=== PATIENT | female | born 1945 | race Caucasian/White ===

== ENCOUNTER 2017-02-23 08:30 | Emergency (ER) | payer MEDICARE ==
[2013-08-14 09:57] VITALS: BMI 36.8
[~2017-02-23 08:30] MED LIST: ALDACTONE25 MG PO; ALLEGRA180 MG PO; AUGMENTIN 500-11 TAB PO; BACTROBAN 22 GM22 GM TP; BENADRYL CREA28.3 GM TP; COUMADIN5 MG PO; DEPADE50 MG PO; DIOVAN HCT 160/1 TA1 PO; ENBREL50 MG/ML SQ; FISH OIL 1,0001 CA1 PO; FLUTICASONE PRO16 GM NS; FOLIC ACID1 MG PO; GLUCAGON1 MG/KIT IM; GLUCAGON1 MG/KIT SQ; GLUCOPHAGE1000 MG; GLUCOPHAGE500 MG PO; HUMALOG 30100 UNITS/; INSTA-GLUCOSE31 GM PO; LANTUS SOL100 UNIT/1; LIPITOR20 MG PO; MIRALAX17 GM PO; MOBIC7.5 MG PO; MULTI-DAY VITAM1 TAB PO; NORCO 10/325 TA1 TA1 PO; ONDANSETRON4 MG/2 M3 IV; ONDANSETRON4 MG/2 M3 PO; OXYCODONE HCL5 MG PO; OXYCONTIN10 MG PO; PREVACID30 MG; PROTONIX40 MG PO; SALINE FLUSH10 ML IJ; SENOKOT-S TABLE1 TAB PO; VALTREX1000 MG PO; VITAMIN D31000 UNIT PO; ZOLOFT25 MG PO
[2017-02-23 09:49] LABS: APPEARANCE SLT CLOUDY (CLEAR); BILIRUBIN NEGATIVE (NEGATIVE); COLOR YELLOW (YELLOW); GLUCOSE NEGATIVE (NEGATIVE); KETONE NEGATIVE (NEGATIVE); LEUKOCYTE ESTERASE 1+ (NEGATIVE); NITRITE NEGATIVE (NEGATIVE); PROTEIN NEGATIVE (NEGATIVE); RED CELLS - URINE >50 /hpf (0-5); UROBILINOGEN NORMAL (NORMAL)
[2017-02-23 09:50] LABS: BACTERIA MANY /hpf (NONE SEEN); EPITHELIAL CELLS RARE /hpf (0-5)
== END 2017-02-23 10:00 | disposition home or self-care (01) ==
LOC: D.ER 08:30
PROVIDERS: Emergency Medicine
DX: R31.9 Hematuria, unspecified (principal); N39.0 Urinary tract infection, site not specified; J32.9 Chronic sinusitis, unspecified

== ENCOUNTER → 2017-03-21 09:24 | Outpatient (CLI) | payer MEDICARE ==
[2013-08-14 09:57] VITALS: BMI 36.8
[2017-03-21 10:30] LABS: BASOPHILS 0.6 % (0-2); EOSINOPHILS 4.4 % (0-7); HEMOGLOBIN 12.7 g/dL (12-16); IMMATURE GRANULOCYTES 0.2 % (0-5); LYMPHOCYTES 43.8 % (15-50); MCHC 31.8 g/dL (31.0-37.0); MCV 94.6 fL (80.0-100.0); MEAN PLATELET VOLUME 10.4 fL (7.4-10.4); MONOCYTES 7.9 % (2-11); NEUTROPHILS 43.1 % (40-80); PLATELET COUNT 323 10x3/uL (130-400); RBC 4.23 10x6/uL (4.00-5.40); RDW 14.1 % (11.5-14.5); WBC 6.3 10x3/uL (4.8-10.8)
[2017-03-21 10:46] LABS: APPEARANCE CLOUDY (CLEAR); BACTERIA MODERATE /hpf (NONE SEEN); BILIRUBIN NEGATIVE (NEGATIVE); COLOR YELLOW (YELLOW); GLUCOSE NEGATIVE (NEGATIVE); KETONE NEGATIVE (NEGATIVE); LEUKOCYTE ESTERASE 2+ (NEGATIVE); MUCUS <1+ /lpf (NONE SEEN); NITRITE NEGATIVE (NEGATIVE); PROTEIN NEGATIVE (NEGATIVE); UROBILINOGEN NORMAL (NORMAL)
[2017-03-21 10:50] LABS: HEMOGLOBIN A1C 7.8 % (4.8-6.0)
[2017-03-21 11:01] LABS: ALBUMIN 3.7 g/dL (3.4-5.0); ALT (SGPT) 42 U/L (10-68); CREATININE - SERUM 0.8 mg/dL (0.6-1.3); UREA NITROGEN 24 mg/dL (7-18)
[2017-03-21 11:04] LABS: C-REACTIVE PROTEIN < 0.2 mg/dL (0.0-0.9)
[2017-03-21 12:08] LABS: ERYTHROCYTE SEDIMENTATION RATE 14 mm/hr (0-30)
== END | disposition home or self-care (01) ==
LOC: D.LAB 03-17 10:15
PROVIDERS: Family Medicine
DX: M05.79 Rheumatoid arthritis with rheumatoid factor of multiple sites without organ or systems involvement (principal)

== ENCOUNTER → 2017-11-22 08:46 | Outpatient (CLI) | payer MEDICARE ==
[2013-08-14 09:57] VITALS: BMI 36.8
[2017-11-22 09:11] LABS: BASOPHILS 0.5 % (0-2); EOSINOPHILS 2.5 % (0-7); HEMATOCRIT 40.4 % (36.0-48.0); HEMOGLOBIN 13.2 g/dL (12-16); IMMATURE GRANULOCYTES 0.3 % (0-5); LYMPHOCYTES 33.7 % (15-50); MCH 30.4 pg (26.0-34.0); MCHC 32.7 g/dL (31.0-37.0); MCV 93.1 fL (80.0-100.0); MEAN PLATELET VOLUME 9.6 fL (7.4-10.4); MONOCYTES 7.5 % (2-11); NEUTROPHILS 55.5 % (40-80); PLATELET COUNT 345 10x3/uL (130-400); RBC 4.34 10x6/uL (4.00-5.40); RDW 13.8 % (11.5-14.5); WBC 7.3 10x3/uL (4.8-10.8)
[2017-11-22 09:20] LABS: HEMOGLOBIN A1C 7.6 % (4.8-6.0)
[2017-11-22 09:36] LABS: ALBUMIN 3.9 g/dL (3.4-5.0); ALKALINE PHOSPHATASE 140 U/L (46-116); ALT (SGPT) 46 U/L (10-68); BILIRUBIN - TOTAL 0.58 mg/dL (0.2-1.3); CALC OSMOLALITY 283 mosm/kg (275-300); CALCIUM 9.6 mg/dL (8.5-10.1); CARBON DIOXIDE 27.6 mmol/L (21.0-32.0); CHLORIDE - SERUM 101 mmol/L (98-107); CHOL - HDL RATIO 1.8 ratio (2.3-4.1); CHOLESTEROL, TOTAL 163 mg/dL (0-200); CREATININE - SERUM 0.8 mg/dL (0.6-1.3); GLUCOSE 181 mg/dL (74-106); HDL CHOLESTEROL 90 mg/dL (32-96); LDL CHOLESTEROL 55 mg/dL (0-100); LDL-HDL RATIO 0.6 ratio (1.5-3.5); POTASSIUM - SERUM 4.5 mmol/L (3.5-5.1); PROTEIN - SERUM 6.9 g/dL (6.4-8.2); SODIUM 137 mmol/L (136-145); THYROID STIMULATING HORMONE 2.08 uIU/mL (0.36-3.74); TRIGLYCERIDE 93 mg/dL (30-200); UREA NITROGEN 26 mg/dL (7-18); eGFR NON AFRICAN AMERICAN 75 mL/min (90-120)
== END | disposition home or self-care (01) ==
LOC: D.LAB 08:46
PROVIDERS: Family Medicine
DX: Z00.00 Encounter for general adult medical examination without abnormal findings (principal); E11.9 Type 2 diabetes mellitus without complications; E78.81 Lipoid dermatoarthritis; I10 Essential (primary) hypertension

== ENCOUNTER → 2018-02-21 09:27 | Outpatient (CLI) | payer MEDICARE ==
[2013-08-14 09:57] VITALS: BMI 36.8
[2018-02-21 10:16] LABS: BASOPHILS 0.6 % (0-2); EOSINOPHILS 2.5 % (0-7); HEMATOCRIT 38.7 % (36.0-48.0); HEMOGLOBIN 12.5 g/dL (12-16); IMMATURE GRANULOCYTES 0.3 % (0-5); LYMPHOCYTES 41.1 % (15-50); MCH 30.3 pg (26.0-34.0); MCHC 32.3 g/dL (31.0-37.0); MCV 93.9 fL (80.0-100.0); MEAN PLATELET VOLUME 9.8 fL (7.4-10.4); MONOCYTES 6.6 % (2-11); NEUTROPHILS 48.9 % (40-80); PLATELET COUNT 330 10x3/uL (130-400); RBC 4.12 10x6/uL (4.00-5.40); RDW 13.5 % (11.5-14.5); WBC 6.3 10x3/uL (4.8-10.8)
[2018-02-21 10:23] LABS: CREATININE - URINE 134.7 mg/dL (30-125); PRO/CRE RATIO URINE 0.1 mg/g; PROTEIN - URINE 16.9 mg/dL (0.0-11.9)
[2018-02-21 10:26] LABS: APPEARANCE HAZY (CLEAR); BACTERIA MODERATE /hpf (NONE SEEN); BILIRUBIN NEGATIVE (NEGATIVE); COLOR YELLOW (YELLOW); EPITHELIAL CELLS 0-5 /hpf (0-5); GLUCOSE NEGATIVE (NEGATIVE); KETONE NEGATIVE (NEGATIVE); MUCUS >1+ /lpf (NONE SEEN); NITRITE NEGATIVE (NEGATIVE); PROTEIN NEGATIVE (NEGATIVE); RED CELLS - URINE RARE /hpf (0-5); SPECIFIC GRAVITY 1.015 (1.005-1.020); UROBILINOGEN NORMAL (NORMAL)
[2018-02-21 10:38] LABS: CALC OSMOLALITY 283 mosm/kg (275-300); CALCIUM 9.4 mg/dL (8.5-10.1); CARBON DIOXIDE 28.3 mmol/L (21.0-32.0); CHLORIDE - SERUM 102 mmol/L (98-107); CREATININE - SERUM 0.8 mg/dL (0.6-1.3); FERRITIN 76 ng/mL (3-244); GLUCOSE 139 mg/dL (74-106); MAGNESIUM - SERUM 1.6 mg/dL (1.8-2.4); POTASSIUM - SERUM 4.8 mmol/L (3.5-5.1); SODIUM 139 mmol/L (136-145); UREA NITROGEN 23 mg/dL (7-18); eGFR NON AFRICAN AMERICAN 75 mL/min (90-120)
[2018-02-21 10:49] LABS: C-REACTIVE PROTEIN 0.2 mg/dL (0.0-0.9)
[2018-02-21 11:54] LABS: ERYTHROCYTE SEDIMENTATION RATE 12 mm/hr (0-30)
== END | disposition home or self-care (01) ==
LOC: D.LAB 09:15
PROVIDERS: Family Medicine
DX: E11.9 Type 2 diabetes mellitus without complications (principal); E78.5 Hyperlipidemia, unspecified; R25.2 Cramp and spasm; M06.9 Rheumatoid arthritis, unspecified; I10 Essential (primary) hypertension; E55.9 Vitamin D deficiency, unspecified

== ENCOUNTER → 2018-03-19 10:22 | Outpatient (CLI) | payer MEDICARE ==
[2013-08-14 09:57] VITALS: BMI 36.8
== END | disposition home or self-care (01) ==
LOC: D.MAMMO 09:30
DX: Z12.31 Encounter for screening mammogram for malignant neoplasm of breast (principal)

== ENCOUNTER → 2018-08-15 09:50 | Outpatient (CLI) | payer MEDICARE ==
[2013-08-14 09:57] VITALS: BMI 36.8
== END | disposition home or self-care (01) ==
LOC: D.LAB 09:50
DX: M06.09 Rheumatoid arthritis without rheumatoid factor, multiple sites (principal)

== ENCOUNTER → 2019-03-26 10:12 | Outpatient (CLI) | payer MEDICARE ==
[2013-08-14 09:57] VITALS: BMI 36.8
[2019-03-26 10:54] LABS: ALT (SGPT) 49 U/L (10-68); C-REACTIVE PROTEIN < 0.2 mg/dL (0.0-0.9); CREATININE - SERUM 0.9 mg/dL (0.6-1.3); UREA NITROGEN 26 mg/dL (7-18)
[2019-03-26 11:06] LABS: BASOPHILS 0.5 % (0-2); EOSINOPHILS 1.4 % (0-7); HEMATOCRIT 39.3 % (36.0-48.0); HEMOGLOBIN 13.1 g/dL (12-16); IMMATURE GRANULOCYTES 0.4 % (0-5); LYMPHOCYTES 38.6 % (15-50); MCH 30.5 pg (26.0-34.0); MCHC 33.3 g/dL (31.0-37.0); MCV 91.4 fL (80.0-100.0); MEAN PLATELET VOLUME 9.5 fL (7.4-10.4); MONOCYTES 5.9 % (2-11); NEUTROPHILS 53.2 % (40-80); PLATELET COUNT 374 10x3/uL (130-400); RDW 13.9 % (11.5-14.5); WBC 8.5 10x3/uL (4.8-10.8)
[2019-03-26 11:49] LABS: APPEARANCE CLEAR (CLEAR); BILIRUBIN NEGATIVE (NEGATIVE); COLOR YELLOW (YELLOW); GLUCOSE NEGATIVE (NEGATIVE); KETONE NEGATIVE (NEGATIVE); NITRITE NEGATIVE (NEGATIVE); PROTEIN NEGATIVE (NEGATIVE); SPECIFIC GRAVITY 1.005 (1.005-1.020); UROBILINOGEN NORMAL (NORMAL)
[2019-03-26 11:52] LABS: BACTERIA FEW /hpf (NONE SEEN); EPITHELIAL CELLS 0-5 /hpf (0-5); MUCUS <1+ /lpf (NONE SEEN); WHITE CELLS - URINE 0-5 /hpf (0-5)
[2019-03-26 12:18] LABS: ERYTHROCYTE SEDIMENTATION RATE 10 mm/hr (0-30)
== END | disposition home or self-care (01) ==
LOC: D.LAB 10:12
PROVIDERS: ATTEND Internal Medicine Rheumatology
DX: M06.9 Rheumatoid arthritis, unspecified (principal)

== ENCOUNTER → 2019-04-24 11:31 | Outpatient (CLI) | payer MEDICARE ==
[2013-08-14 09:57] VITALS: BMI 36.8
[2019-04-24 12:24] LABS: CHOL - HDL RATIO 1.9 ratio (2.3-4.1); LDL-HDL RATIO 0.5 ratio (1.5-3.5)
[2019-04-25 06:12] LABS: VITAMIN D 25 HYDROXY 47.9 ng/mL (30.0-100.0)
== END | disposition home or self-care (01) ==
LOC: D.LAB 11:31
PROVIDERS: ATTEND Family Medicine
DX: E11.9 Type 2 diabetes mellitus without complications (principal); R31.9 Hematuria, unspecified; I10 Essential (primary) hypertension; R30.0 Dysuria; E55.9 Vitamin D deficiency, unspecified; E78.5 Hyperlipidemia, unspecified

== ENCOUNTER → 2019-09-18 09:05 | Outpatient (CLI) | payer MEDICARE ==
[2013-08-14 09:57] VITALS: BMI 36.8
[2019-09-18 10:57] LABS: APPEARANCE HAZY (CLEAR); COLOR YELLOW (YELLOW)
[2019-09-18 10:58] LABS: AMORPHOUS SEDIMENT <1+ /lpf (NONE SEEN); BACTERIA MODERATE /hpf (NEGATIVE); BILIRUBIN NEGATIVE (NEGATIVE); EPITHELIAL CELLS 0-5 /hpf (0-5); GLUCOSE NEGATIVE (NEGATIVE); KETONE NEGATIVE (NEGATIVE); NITRITE NEGATIVE (NEGATIVE); PROTEIN NEGATIVE (NEGATIVE); RED CELLS - URINE 0-5 /hpf (0-5); UROBILINOGEN NORMAL (NORMAL); WHITE CELLS - URINE 0-5 /hpf (NEGATIVE)
[2019-09-18 10:59] LABS: MUCUS <1+ /lpf (NONE SEEN)
== END | disposition home or self-care (01) ==
LOC: D.LAB 09:05
PROVIDERS: Family Medicine; ATTEND Internal Medicine Rheumatology
DX: R30.0 Dysuria (principal)

== ENCOUNTER 2019-10-29 08:00 | Outpatient (CLI) | payer MEDICARE ==
[2013-08-14 09:57] VITALS: BMI 36.8
== END 2019-10-29 23:59 | disposition home or self-care (01) ==
LOC: D.MAMMO 08:00
PROVIDERS: ATTEND Family Medicine
DX: Z12.31 Encounter for screening mammogram for malignant neoplasm of breast (principal)

== ENCOUNTER → 2020-02-20 09:22 | Outpatient (CLI) | payer MEDICARE ==
[2013-08-14 09:57] VITALS: BMI 36.8
[2020-02-20 09:55] LABS: BASOPHILS 0.3 % (0-2); HEMATOCRIT 38.6 % (36.0-48.0); HEMOGLOBIN 12.2 g/dL (12-16); IMMATURE GRANULOCYTES 0.3 % (0-5); LYMPHOCYTES 37.7 % (15-50); MCHC 31.6 g/dL (31.0-37.0); MCV 95.1 fL (80.0-100.0); MEAN PLATELET VOLUME 9.5 fL (7.4-10.4); MONOCYTES 7.1 % (2-11); NEUTROPHILS 52.6 % (40-80); PLATELET COUNT 320 10x3/uL (130-400); RBC 4.06 10x6/uL (4.00-5.40); RDW 13.4 % (11.5-14.5); WBC 7.2 10x3/uL (4.8-10.8)
== END | disposition home or self-care (01) ==
LOC: D.LAB 09:22
PROVIDERS: ATTEND Internal Medicine Rheumatology
DX: M06.09 Rheumatoid arthritis without rheumatoid factor, multiple sites (principal)

== ENCOUNTER → 2021-02-25 08:49 | Outpatient (CLI) | payer MEDICARE ==
[2013-08-14 09:57] VITALS: BMI 36.8
[2021-02-25 09:30] LABS: BASOPHILS 0.4 % (0-2); EOSINOPHILS 1.3 % (0-7); HEMOGLOBIN 12.4 g/dL (12-16); IMMATURE GRANULOCYTES 0.4 % (0-5); LYMPHOCYTE ABS# 2.68 10x3/uL (1.18-3.74); LYMPHOCYTES 35.9 % (15-50); MCH 29.8 pg (26.0-34.0); MCHC 31.8 g/dL (31.0-37.0); MCV 93.8 fL (80.0-100.0); MEAN PLATELET VOLUME 9.6 fL (7.4-10.4); MONOCYTES 8.4 % (2-11); NEUTROPHIL ABS# 3.99 10x3/uL (1.56-6.13); NEUTROPHILS 53.6 % (40-80); PLATELET COUNT 383 10x3/uL (130-400); RBC 4.16 10x6/uL (4.00-5.40); RDW 14.1 % (11.5-14.5); WBC 7.5 10x3/uL (4.8-10.8)
[2021-02-25 09:45] LABS: ALBUMIN 3.9 g/dL (3.4-5.0); ALT (SGPT) 41 U/L (10-68); CREATININE - SERUM 0.9 mg/dL (0.6-1.3); UREA NITROGEN 30 mg/dL (7-18)
[2021-02-25 09:46] LABS: C-REACTIVE PROTEIN < 0.2 mg/dL (0.0-0.9)
[2021-02-25 11:13] LABS: ERYTHROCYTE SEDIMENTATION RATE 20 mm/hr (0-30)
[2021-02-26 11:41] LABS: BILIRUBIN NEGATIVE (NEGATIVE); KETONE NEGATIVE (NEGATIVE); NITRITE NEGATIVE (NEGATIVE); UROBILINOGEN NORMAL mg/dL (< 2)
== END | disposition home or self-care (01) ==
LOC: D.LAB 08:49
PROVIDERS: ATTEND Internal Medicine Rheumatology
DX: M06.09 Rheumatoid arthritis without rheumatoid factor, multiple sites (principal); Z79.1 Long term (current) use of non-steroidal anti-inflammatories (NSAID)